=== PATIENT | male | born 1950 | race Caucasian/White ===

== ENCOUNTER 2019-09-22 06:54 | Day surgery (SDC) | payer MEDICARE, OTHER ==
[2019-09-22] MEDS: Lactated Ringers 1,000 ML IV SCH (07:47)
[2019-09-22] MEDS ORDERED: fentaNYL 100 MCG/2 ML SDV ONE (08:17)
[2019-09-22] MEDS ORDERED: Propofol 200 MG/20 ML SDV ONE (08:17)
--- NOTE | 2019-09-22 14:15 | OR ---
PREOPERATIVE DIAGNOSIS: Screening. POSTOPERATIVE DIAGNOSIS: Screening. PROCEDURE: Colonoscopy. ANESTHESIA: MAC. FINDINGS: One small internal hemorrhoid. DETAILS OF PROCEDURE: After obtaining informed consent, the patient was brought to the operating room and placed under monitored anesthesia care. A lighted well-lubricated scope equipped with Endocuff device was inserted into the anus and traversed all the way to the cecum. The cecum was identified by the appendiceal orifice and the ileocecal valve. We then retracted the scope over approximately 10 minutes and finding no pathology. We did find one small internal hemorrhoid on retroflex. The scope was removed. The patient should have repeat colonoscopy in 10 years or sooner if problems arise. CJM: 09/22/2019 09:55:56 MODL: 09/22/2019 14:08:53 /[id number]
== END 2019-09-22 11:14 | disposition home or self-care (01) ==
LOC: VM.SDS 06:54
PROVIDERS: ATTEND Surgery
DX: Z12.11 Encounter for screening for malignant neoplasm of colon (principal); K64.8 Other hemorrhoids; I10 Essential (primary) hypertension; E78.00 Pure hypercholesterolemia, unspecified; K21.9 Gastro-esophageal reflux disease without esophagitis; I25.10 Atherosclerotic heart disease of native coronary artery without angina pectoris; I25.83 Coronary atherosclerosis due to lipid rich plaque; E03.4 Atrophy of thyroid (acquired); G89.29 Other chronic pain; M54.5 Low back pain; N40.0 Benign prostatic hyperplasia without lower urinary tract symptoms; M19.041 Primary osteoarthritis, right hand; E66.9 Obesity, unspecified; Z68.30 Body mass index [BMI] 30.0-30.9, adult; Z87.891 Personal history of nicotine dependence; Z79.82 Long term (current) use of aspirin; Z79.899 Other long term (current) drug therapy
CPT/HCPCS: 00812; J2704; J3010; J7120

== ENCOUNTER 2019-12-11 17:14 | Emergency (ER) | payer MEDICARE, OTHER ==
[2019-12-11] MEDS ORDERED: Proparacaine 0.5% Ophth Soln 15 ML Bottle EYERT PRN (17:26)
[2019-12-11] MEDS ORDERED: Fluorescein 1 MG Ophth Strip EYERT ONE (17:44)
[2019-12-11] MEDS ORDERED: Cephalexin 500 MG Cap PO ONE (18:54)
[2019-12-11] MEDS ORDERED: Take Home: Cephalexin 500 MG Cap, 4 Cap Pack PO ONE (18:54)
--- NOTE | 2019-12-11 18:58 | EDM.PDOC ---
ED HPI GENERAL MEDICAL PROBLEM - General Chief Complaint: Eye Problems Stated Complaint: SOMETHING IN EYE Time Seen by Provider: 12/11/19 17:35 Source of Information: Reports: Patient History Limitations: Reports: No Limitations - History of Present Illness INITIAL COMMENTS - FREE TEXT/NARRATIVE: Patient comes emergency department today with complaints of a foreign substance solution that he got in his eye when he was inoculating his horse for the prevention of infection in the respiratory tract. His prior to arrival the patient was injecting that occasion into his horses nose to prevent horse "strangle". He was doing so the horse sneezed and it blew into his right eye. He has some burning sensation and some blurry vision. He did attempt to rinse his eyes at home prior to arrival with little relief. Treatments RECEIVING ASSOCIATE: Reports: Other (see below) Other Treatments RECEIVING ASSOCIATE: washed out eye Right Eye Pain Score (Numeric/FACES): 6 - Related Data Allergies Allergy/AdvReac Type Severity Reaction Status Date / Time codeine Allergy Other Verified 12/11/19 17:54 promethazine Allergy Other Verified 12/11/19 17:54 Home Meds: Home Meds Isosorbide Mononitrate [Imdur] 30 mg PO DAILY 09/13/19 [History] Levothyroxine 125 mcg PO ACBREAKFAST 09/13/19 [History] Omeprazole 20 mg PO DAILY 09/13/19 [History] Simvastatin 20 mg PO BEDTIME 09/13/19 [History] tiZANidine [Zanaflex] 4 mg PO BID PRN 09/13/19 [History] Aspirin [Halfprin] 81 mg PO DAILY 12/11/19 [History] Flaxseed Oil 1,000 mg PO DAILY 12/11/19 [History] Fluorometholone [Fluorometholone 0.1% Ophth Susp] 10 ml OP ASDIRECTED 12/11/19 [ History] Glucosam/Chondr/Collagn/Hyalur [Glucosamine & Chondroitin Cap] 1 each PO DAILY 12/11/19 [History] Ubiquinone 400 mg PO DAILY 12/11/19 [History] cephALEXin [Cephalexin] 500 mg PO QID #16 capsule 12/11/19 [Rx] Past Medical History HEENT History: Reports: Allergic Rhinitis, Hard of Hearing, Other (See Below) Other HEENT History: nasal polyps. left maxillary sinusitis Cardiovascular History: Reports: CAD, High Cholesterol, Hypertension Gastrointestinal History: Reports: GERD, Hemorrhoids, Other (See Below) Other Gastrointestinal History: hematemesis Genitourinary History: Reports: BPH Psychiatric History: Reports: Other (See Below) Other Psychiatric History: nicotine dependence Endocrine/Metabolic History: Reports: Hypothyroidism, Obesity/BMI 30+, Other ( See Below) Other Endocrine/Metabolic History: hyperglycemic - Past Surgical History HEENT Surgical History: Reports: Other (See Below) Other HEENT Surgeries/Procedures: teeth extraction GI Surgical History: Reports: Colostomy Other Female Surgeries/Procedures: prostate surgery Male Surgical History: Reports: TURP-Transurethral Resection of Prostate, Other (See Below) Musculoskeletal Surgical History: Reports: Other (See Below) Other Musculoskeletal Surgeries/Procedures:: foot surgery. fx surgery. hand surgery Social & Family History - Tobacco Use Smoking Status *Q: Never Smoker - Caffeine Use Caffeine Use: Reports: None - Alcohol Use Days Per Week of Alcohol Use: 1 Number of Drinks Per Day: 1 Total Drinks Per Week: 1 - Recreational Drug Use Recreational Drug Use: No ED ROS GENERAL - Review of Systems Review Of Systems: Comprehensive ROS is negative, except as noted in HPI. ED EXAM GENERAL W FULL EYE - Physical Exam Exam: See Below Text/Narrative:: See nurses notes for visual acuity exam. Exam Limited By: No Limitations General Appearance: Alert, WD/WN Eye Exam: Right Eye: Conjunctival Injection, Bilateral Eye: EOMI, PERRL Eyelids: Bilateral: Normal Appearance Conjunctiva & Sclera: Right: Injected Cornea Exam: Right: Examined with Flourescein (unremarkable. ) Extraocular Movements: Bilateral: Intact Pupils: Normal Accommodation Pupillary Size: Bilateral: 4 mm Pupillary Reaction: Bilateral: Brisk Ears: Normal External Exam, Normal Canal, Normal TMs Nose: Normal Inspection, Normal Mucosa Throat/Mouth: Normal Inspection, Normal Lips, Normal Teeth, Normal Oropharynx, No Airway Compromise Head: Atraumatic, Normocephalic Neck: Normal Inspection, Supple Respiratory/Chest: No Respiratory Distress Cardiovascular: Normal Peripheral Pulses Skin Exam: Warm, Dry, Intact, Normal Color, No Rash Course - Vital Signs Last Recorded V/S: Last Vital Signs Temp 36.4 C 12/11/19 17:26 Pulse 86 12/11/19 17:26 Resp 18 12/11/19 17:26 BP 181/97 H 12/11/19 17:26 Pulse Ox 93 L 12/11/19 17:26 - Orders/Labs/Meds Meds: Medications Discontinued Medications Generic Name Dose Route Start Last Admin Trade Name Lucina PRN Reason Stop Dose Admin Cephalexin 1 packet 12/11/19 18:54 12/11/19 19:04 Take Home: Cephalexin 500 Mg, 4 Cap Pack PO 12/11/19 18:55 1 packet ONETIME ONE Administration Cephalexin 500 mg 12/11/19 18:54 12/11/19 19:04 Keflex PO 12/11/19 18:55 500 mg ONETIME ONE Administration Fluorescein Sodium 1 mg 12/11/19 17:44 Ful-Ban EYERT 12/11/19 17:45 ONETIME ONE Proparacaine HCl 1 ml 12/11/19 17:26 12/11/19 19:07 Proparacaine 0.5% Ophth Soln EYERT 1 drop ASDIRECTED PRN Administration Other - Re-Assessments/Exams Free Text/Narrative Re-Assessment/Exam: 12/12/19 Proparacaine was instilled in the eye for anesthesia. A brief exam of the eye does not show any foreign material. There is some mild injection of the conjunctive on the sclera. A Jean lens was placed in the eye and it was irrigated with 300 mils of normal saline. Discuss with poison control the substance that was identified by the patient and their guidance was exactly what we have been doing as well as some antibiotic at home. This is a live vaccination and therefore we should cover him with Keflex or clindamycin. The patient's irritation to the eye resolved. I reexamined the eye not only under fluorescein but also visual appearance. There is no foreign material debris corneal abrasion. We will start him on Keflex as guided by poison control. If he is not following the improvement of 90% in 24 hours and 100% 48 hours he is to recheck with either ophthalmology or optometry. He is understanding of this his questions were answered and he was comfortable with this plan. Departure - Departure Time of Disposition: 18:52 Disposition: Home, Self-Care 01 Clinical Impression: Liquid substance in eye - Discharge Information Prescriptions: cephALEXin [Cephalexin] 500 mg PO QID #16 capsule Referrals: Iona Ye MD [Primary Care Provider] - Forms: ED Department Discharge Additional Instructions: Warm packs to the eye. Try not to rub your eye. Cephalexin 1 capsule 4 times a day for the next 5 days. RX to Pharmacy. Starter pack from the ED given. In 24 hours you should be 90% better and 48 hours 100% better. If not following this plan see optometry. Return to the ED if new or worsening symptoms especially change in vision pain in the eye. Sepsis Event Note - Evaluation Sepsis Screening Result: No Definite Risk - Focused Exam Date Exam was Performed: 12/12/19 Time Exam was Performed: 13:40
== END 2019-12-11 19:09 | disposition home or self-care (01) ==
LOC: VM.ED 17:14
DX: T15.91XA Foreign body on external eye, part unspecified, right eye, initial encounter (principal); I10 Essential (primary) hypertension; E78.00 Pure hypercholesterolemia, unspecified; I25.10 Atherosclerotic heart disease of native coronary artery without angina pectoris; K21.9 Gastro-esophageal reflux disease without esophagitis; E03.9 Hypothyroidism, unspecified; E66.9 Obesity, unspecified; Z68.26 Body mass index [BMI] 26.0-26.9, adult; Z88.5 Allergy status to narcotic agent; Z88.8 Allergy status to other drugs, medicaments and biological substances; Z79.899 Other long term (current) drug therapy; Z79.82 Long term (current) use of aspirin
CPT/HCPCS: 99283; 99284-GF; A9270-GY

== ENCOUNTER 2020-02-06 17:03 | Emergency (ER) | payer MEDICARE, OTHER ==
[2020-02-06] MEDS ORDERED: Sodium Chloride 0.9% 10 ML Syringe FLUSH PRN (17:59)
[2020-02-06] MEDS ORDERED: cefTRIAXone 2 GM Vial IVPUSH ONE (17:59)
--- NOTE | 2020-02-06 18:07 | EDM.PDOC ---
ED HPI GENERAL MEDICAL PROBLEM - General Stated Complaint: infection in arm Time Seen by Provider: 02/06/20 17:58 Source of Information: Reports: Patient History Limitations: Reports: No Limitations - History of Present Illness INITIAL COMMENTS - FREE TEXT/NARRATIVE: Patient comes emergency department today with complaints of redness swelling and pain to the right forearm. This patient is actively receiving chemotherapy for what he relates is multiple myeloma. He received chemotherapy infusion on a peripheral IV started on Friday and this week. Yesterday 2 days later after his IV infusion which she had no problems with or irritation at the IV site initially he developed erythema swelling and redness right anterior forearm. He denies any fever or chills. He denies any generalized malaise or fatigue. No nausea no vomiting. No weakness dizziness lightheadedness. Not have a subcutaneous port or PICC line for his chemotherapy is going to be receiving 2 to 3 days a week for the next 4 months. - Related Data Allergies Allergy/AdvReac Type Severity Reaction Status Date / Time codeine Allergy Other Verified 12/11/19 17:54 promethazine Allergy Other Verified 12/11/19 17:54 Home Meds: Home Meds Isosorbide Mononitrate [Imdur] 30 mg PO DAILY 09/13/19 [History] Levothyroxine 125 mcg PO ACBREAKFAST 09/13/19 [History] Omeprazole 20 mg PO DAILY 09/13/19 [History] Simvastatin 20 mg PO BEDTIME 09/13/19 [History] tiZANidine [Zanaflex] 4 mg PO BID PRN 09/13/19 [History] Aspirin [Halfprin] 81 mg PO DAILY 12/11/19 [History] Flaxseed Oil 1,000 mg PO DAILY 12/11/19 [History] Fluorometholone [Fluorometholone 0.1% Ophth Susp] 10 ml OP ASDIRECTED 12/11/19 [ History] Glucosam/Chondr/Collagn/Hyalur [Glucosamine & Chondroitin Cap] 1 each PO DAILY 12/11/19 [History] Ubiquinone 400 mg PO DAILY 12/11/19 [History] cephALEXin [Cephalexin] 500 mg PO QID #16 capsule 12/11/19 [Rx] Cefdinir 300 mg PO BID #20 capsule 02/06/20 [Rx] Past Medical History HEENT History: Reports: Allergic Rhinitis, Hard of Hearing, Other (See Below) Other HEENT History: nasal polyps. left maxillary sinusitis Cardiovascular History: Reports: CAD, High Cholesterol, Hypertension Gastrointestinal History: Reports: GERD, Hemorrhoids, Other (See Below) Other Gastrointestinal History: hematemesis Genitourinary History: Reports: BPH Psychiatric History: Reports: Other (See Below) Other Psychiatric History: nicotine dependence Endocrine/Metabolic History: Reports: Hypothyroidism, Obesity/BMI 30+, Other ( See Below) Other Endocrine/Metabolic History: hyperglycemic - Past Surgical History HEENT Surgical History: Reports: Other (See Below) Other HEENT Surgeries/Procedures: teeth extraction GI Surgical History: Reports: Colostomy Male Surgical History: Reports: TURP-Transurethral Resection of Prostate, Other (See Below) Musculoskeletal Surgical History: Reports: Other (See Below) Other Musculoskeletal Surgeries/Procedures:: foot surgery. fx surgery. hand surgery Social & Family History - Caffeine Use Caffeine Use: Reports: None ED ROS GENERAL - Review of Systems Review Of Systems: Comprehensive ROS is negative, except as noted in HPI. ED EXAM, SKIN/RASH Exam: See Below Exam Limited By: No Limitations General Appearance: Alert, WD/WN, No Apparent Distress Ears: Normal External Exam, Normal TMs Nose: Normal Inspection, Normal Mucosa Throat/Mouth: Normal Inspection, Normal Lips, Normal Oropharynx Head: Atraumatic, Normocephalic Neck: Normal Inspection, Supple Respiratory/Chest: No Respiratory Distress, Lungs Clear, Normal Breath Sounds, No Accessory Muscle Use Cardiovascular: Normal Peripheral Pulses, Regular Rate, Rhythm Peripheral Pulses: 2+: Radial (L), Radial (R), Posterior Tibial (L), Posterior Tibial (R), Dorsalis Pedis (L), Dorsalis Pedis (R) GI/Abdominal: Normal Bowel Sounds, Soft, Non-Tender (Male) Exam: Deferred Rectal (Males) Exam: Deferred Back Exam: Normal Inspection, Full Range of Motion Extremities: No: Normal Inspection (On the dorsal aspect of the right forearm starting on the distal radius side extending up about three quarters [address] way on the forearm there is an area of erythema induration and swelling. There is no focal areas of fluctuance concerning for abscess. There is no drainage. There is no breaks in the skin. It is warm to touch. There is no lymphadenopathy in the right axilla. Rest of the right arm is unremarkable. He is able to flex and extend at the elbow appropriately.) Neurological: Alert, Oriented, Normal Cognition, No Motor/Sensory Deficits Psychiatric: Normal Affect Skin: Warm, Dry, Intact, Normal Color Course - Orders/Labs/Meds Orders: Active Orders 24 hr Category Date Time Status CULTURE BLOOD [BC] Stat Lab 02/06/20 18:20 Received CULTURE BLOOD [BC] Stat Lab 02/06/20 18:28 Received Sodium Chloride 0.9% [Saline Flush] Med 02/06/20 17:59 Active 10 ml FLUSH ASDIRECTED PRN Blood Culture x2 Reflex Set [OM.PC] Stat Oth 02/06/20 17:59 Ordered Peripheral IV Insertion Adult [OM.PC] Stat Oth 02/06/20 17:59 Ordered Medication Orders Sodium Chloride (Saline Flush) 10 ml FLUSH ASDIRECTED PRN PRN Reason: Keep Vein Open Labs: Laboratory Tests 02/06/20 02/06/20 02/06/20 Range/Units 18:20 18:20 18:20 WBC 11.1 H (4.0-10.0) x10^3/uL RBC 5.37 (4.5-6.0) x10^6/uL Hgb 16.4 (14.0-18.0) g/dL Hct 45.9 (40.0-52.0) % MCV 85.5 (78.0-93.0) fL MCH 30.5 (26.0-32.0) pg MCHC 35.7 (32.0-36.0) g/dL RDW Coeff of Nae 12.8 (10.0-15.0) % Plt Count 198 (130-400) x10^3/uL Add Manual Diff Yes Neutrophils % (Manual) 61 (50-80) % Band Neutrophils % 3 (0-6) % Lymphocytes % (Manual) 20 L (25-50) % Monocytes % (Manual) 12 H (2-11) % Eosinophils % (Manual) 4 (0-4) % Platelet Estimate Adequate Giant Platelets Few H Sodium 142 (136-145) mmol/L Potassium 3.8 (3.5-5.1) mmol/L Chloride 107 (98-107) mmol/L Carbon Dioxide 25 (21-32) mmol/L Anion Gap 13.8 (10-20) mmol/L BUN 21 H (7-18) mg/dL Creatinine 1.2 (0.70-1.30) mg/dL Est Cr Clr Drug Dosing TNP Estimated GFR (MDRD) > 60 Glucose 112 H (74-106) mg/dL Lactic Acid 1.1 (0.4-2.0) mmol/L Calcium 8.4 L (8.5-10.1) mg/dL C-Reactive Protein 0.4 (<=0.9) mg/dL Meds: Medications Generic Name Dose Route Start Last Admin Trade Name Freq PRN Reason Stop Dose Admin Sodium Chloride 10 ml 02/06/20 17:59 Saline Flush FLUSH ASDIRECTED PRN Keep Vein Open Discontinued Medications Generic Name Dose Route Start Last Admin Trade Name Freq PRN Reason Stop Dose Admin Ceftriaxone Sodium 2 gm 02/06/20 17:59 Rocephin IVPUSH 02/06/20 18:00 STAT ONE - Re-Assessments/Exams Free Text/Narrative Re-Assessment/Exam: 02/06/20 19:05 Was established. Blood cultures x2. Rocephin 2 g IV push. He has a negative lactic acid as well as CRP and WBC. Rest of his labs are rather unremarkable. We will start him on Ceftin ear twice daily for the next 10 days. I would like him to contact his oncologist in the morning and give him a copy of his labs and discuss the incident of today. He is comfortable with this plan and his questions are answered. I also suggested that with the rather aggressive therapy that he is going to have for the next 4 months that he considers either a PICC line or a port placement. Understanding the discharge instructions we did discharge him home with his labs he is comfortable with this plan his questions are answered. Departure - Departure Time of Disposition: 18:55 Disposition: Home, Self-Care 01 Clinical Impression: Cellulitis of arm, right - Discharge Information Instructions: Cellulitis, Adult, [id number] Additional Instructions: Tylenol and/or ibuprofen as needed for pain fever discomfort. If the infection spreads outside of the tracing and you develop any new or worsening symptoms after 24 hours recheck with your primary care oncologist. Talk to her oncologist office in the morning and let him know about your visit today and the concerns of the cellulitis and that you are placed on cefdinir and had blood cultures and lab work completed. To the placement of a subcutaneous port or PICC line for the next 4 months for your very regular chemotherapy infusions. Return to the emergency department if new or worsening symptoms. Sepsis Event Note - Focused Exam Date Exam was Performed: 02/06/20 Time Exam was Performed: 18:55 - My Orders Last 24 Hours: My Active Orders 02/06/20 17:59 Sodium Chloride 0.9% [Saline Flush] 10 ml FLUSH ASDIRECTED PRN Blood Culture x2 Reflex Set [OM.PC] Stat Peripheral IV Insertion Adult [OM.PC] Stat 02/06/20 18:20 CULTURE BLOOD [BC] Stat 02/06/20 18:28 CULTURE BLOOD [BC] Stat - Assessment/Plan Last 24 Hours: My Active Orders 02/06/20 17:59 Sodium Chloride 0.9% [Saline Flush] 10 ml FLUSH ASDIRECTED PRN Blood Culture x2 Reflex Set [OM.PC] Stat Peripheral IV Insertion Adult [OM.PC] Stat 02/06/20 18:20 CULTURE BLOOD [BC] Stat 02/06/20 18:28 CULTURE BLOOD [BC] Stat Assessment:: Active chemo patient. Cellulitis of the right arm previous IV site. Plan: Tylenol and/or ibuprofen as needed for pain fever discomfort. If the infection spreads outside of the tracing and you develop any new or worsening symptoms after 24 hours recheck with your primary care oncologist. Talk to her oncologist office in the morning and let him know about your visit today and the concerns of the cellulitis and that you are placed on cefdinir and had blood cultures and lab work completed. To the placement of a subcutaneous port or PICC line for the next 4 months for your very regular chemotherapy infusions. Return to the emergency department if new or worsening symptoms.
[2020-02-06 18:46] LABS: CHLORIDE,CL 107 mmol/L (98-107); SODIUM,NA 142 mmol/L (136-145)
[2020-02-06 18:47] LABS: ANION GAP 13.8 mmol/L (10-20)
== END 2020-02-06 19:37 | disposition home or self-care (01) ==
LOC: VM.ED 17:03
DX: L03.113 Cellulitis of right upper limb (principal); I25.10 Atherosclerotic heart disease of native coronary artery without angina pectoris; E78.00 Pure hypercholesterolemia, unspecified; I10 Essential (primary) hypertension; K21.9 Gastro-esophageal reflux disease without esophagitis; E66.9 Obesity, unspecified; E03.9 Hypothyroidism, unspecified; Z68.27 Body mass index [BMI] 27.0-27.9, adult; Z88.5 Allergy status to narcotic agent; Z88.8 Allergy status to other drugs, medicaments and biological substances
CPT/HCPCS: 36415; 80048; 83605; 85025; 86140; 87040; 96374; 99283-25; 99284-GF; J0696

== ENCOUNTER 2020-03-09 19:20 | Emergency (ER) | payer MEDICARE, OTHER ==
[2020-03-09] MEDS ORDERED: Sodium Chloride 0.9% 10 ML Syringe FLUSH PRN (19:43)
--- NOTE | 2020-03-09 20:01 | EDM.PDOC ---
ED HPI GENERAL MEDICAL PROBLEM - General Chief Complaint: Fever Stated Complaint: CHILLS AND FEVER Time Seen by Provider: 03/09/20 19:37 Source of Information: Reports: Patient - History of Present Illness INITIAL COMMENTS - FREE TEXT/NARRATIVE: Oscar is a 69 y/o male who is currently undergoing chemotherapy for Multiple Myeloma. He had a chem course this AM between 8:30 and 10:30. He reports getting home and having an uneventful day until about a half an hour ago when he started to get a fever and chills at home. He called the [facility] who advised he present to the ER for evaluation. He denies any other symptoms and only had the fever and chills. On arrival to the ER his ubfq=[id number]. - Related Data Allergies Allergy/AdvReac Type Severity Reaction Status Date / Time codeine Allergy Other Verified 03/09/20 19:25 promethazine Allergy Other Verified 03/09/20 19:25 Home Meds: Home Meds Omeprazole 40 mg PO DAILY 09/13/19 [History] Aspirin 325 mg PO DAILY 03/09/20 [History] Cetirizine [ZyrTEC] 10 mg PO DAILY 03/09/20 [History] Hydrocortisone [Hydrocortisone 1% Oint] 28 gm TOP TID PRN 03/09/20 [History] Lenalidomide [Revlimid] 25 mg PO DAILY 03/09/20 [History] Ondansetron [Zofran] 8 mg PO Q8H PRN 03/09/20 [History] dexAMETHasone [Decadron] 40 mg PO WEEKLY 03/09/20 [History] diphenhydrAMINE [Benadryl] 25 mg PO BEDTIME PRN 03/09/20 [History] Past Medical History HEENT History: Reports: Allergic Rhinitis, Hard of Hearing, Other (See Below) Other HEENT History: nasal polyps. left maxillary sinusitis Cardiovascular History: Reports: CAD, High Cholesterol, Hypertension Gastrointestinal History: Reports: GERD, Hemorrhoids, Other (See Below) Other Gastrointestinal History: hematemesis Genitourinary History: Reports: BPH Psychiatric History: Reports: Other (See Below) Other Psychiatric History: nicotine dependence Endocrine/Metabolic History: Reports: Hypothyroidism, Obesity/BMI 30+, Other (See Below) Other Endocrine/Metabolic History: hyperglycemic Oncologic (Cancer) History: Reports: Other (See Below) Other Oncologic History: Myeloma - Past Surgical History HEENT Surgical History: Reports: Other (See Below) Other HEENT Surgeries/Procedures: teeth extraction GI Surgical History: Reports: Colostomy Male Surgical History: Reports: TURP-Transurethral Resection of Prostate, Other (See Below) Musculoskeletal Surgical History: Reports: Other (See Below) Other Musculoskeletal Surgeries/Procedures:: foot surgery. fx surgery. hand surgery Social & Family History - Tobacco Use Smoking Status *Q: Former Smoker Used Tobacco, but Quit: Yes Month/Year Tobacco Last Used: 2015 - Caffeine Use Caffeine Use: Reports: None Review of Systems - Review of Systems Review Of Systems: See Below Constitutional: Reports: Chills, Fever Eyes: Reports: No Symptoms Ears: Reports: No Symptoms Nose: Reports: No Symptoms Mouth/Throat: Reports: No Symptoms Respiratory: Reports: No Symptoms Cardiovascular: Reports: No Symptoms GI/Abdominal: Reports: No Symptoms Genitourinary: Reports: No Symptoms Musculoskeletal: Reports: No Symptoms Skin: Reports: No Symptoms Neurological: Reports: No Symptoms Psychiatric: Reports: No Symptoms ED EXAM, GENERAL - Physical Exam Exam: See Below Exam Limited By: No Limitations General Appearance: Alert, WD/WN, No Apparent Distress (Elderly male) Ears: Normal External Exam, Normal Canal, Hearing Grossly Normal, Normal TMs Nose: Normal Inspection, Normal Mucosa, No Blood Throat/Mouth: Normal Inspection, Normal Lips, Normal Oropharynx, Normal Voice Head: Atraumatic, Normocephalic Neck: Normal Inspection, Supple, Non-Tender Respiratory/Chest: No Respiratory Distress, Lungs Clear, Normal Breath Sounds, No Accessory Muscle Use, Chest Non-Tender Cardiovascular: Normal Peripheral Pulses, Regular Rate, Rhythm, No Edema, No Murmur GI/Abdominal: Normal Bowel Sounds, Soft, Non-Tender, No Organomegaly (Male) Exam: Deferred Rectal (Males) Exam: Deferred Back Exam: Normal Inspection Extremities: Normal Inspection, Normal Range of Motion, No Pedal Edema, Normal Capillary Refill Neurological: Alert, Oriented, CN II-XII Intact, Normal Cognition, Normal Gait, No Motor/Sensory Deficits Psychiatric: Normal Affect Skin Exam: Warm, Dry, Intact, Normal Color, No Rash Lymphatic: No Adenopathy Course - Vital Signs Text/Narrative:: 193 The patient was seen by the [facility]. Labs ordered. 2009 Lab returned. Note WBC=22.4 and Neut=90, Bands=4. BUN=22, [employer]=1.5. COVID neg. 2024 [facility] contacted and case presented. 2034 Dr Camacho, Hospitalist, accepted the patient for transfer. A liter of NS, Vancomycin 1gm IVPB, and Cefipime 1gm IVPB ordered. Lactic Acid and Blood Cx x2 ordered. Patient remained stable until he left the ER with [facility] for [place]. Last Recorded V/S: Last Vital Signs Temp 38.1 C 03/09/20 19:25 Pulse 105 H 03/09/20 19:25 Resp 18 03/09/20 19:25 BP 118/97 H 03/09/20 19:25 Pulse Ox 100 03/09/20 19:25 - Orders/Labs/Meds Orders: Active Orders 24 hr Category Date Time Status CULTURE BLOOD [BC] Stat Lab 03/09/20 20:46 Ordered CULTURE BLOOD [BC] Stat Lab 03/09/20 20:47 Ordered LACTIC ACID [CHEM] Stat Lab 03/09/20 20:46 Ordered UA W/DARSHANA RFLX IF INDICATED [URIN] Stat Lab 03/09/20 19:43 Ordered Cefepime [Maxipime] 1 gm Med 03/09/20 20:48 Ordered Sodium Chloride 0.9% [Normal Saline] 100 ml IV STAT Sodium Chloride 0.9% @ Wide Open(1,000ml) Med 03/09/20 20:47 Ordered Sodium Chloride 0.9% [Normal Saline] 1,000 ml IV ONETIME Sodium Chloride 0.9% [Saline Flush] Med 03/09/20 19:43 Active 10 ml FLUSH ASDIRECTED PRN Vancomycin 1 gm Med 03/09/20 20:47 Ordered Sodium Chloride 0.9% [Normal Saline (AdvBag)] 250 ml IV STAT Blood Culture x2 Reflex Set [OM.PC] Stat Oth 03/09/20 20:46 Ordered Saline Lock Insert [OM.PC] Stat Oth 03/09/20 19:43 Ordered Medication Orders Sodium Chloride (Normal Saline) 1,000 mls @ 999 mls/hr IV ONETIME ONE Stop: 03/09/20 21:47 Last Admin: 03/09/20 20:51 Dose: 999 mls/hr Documented by: Vancomycin HCl 1 gm/ Sodium (Chloride) 250 mls @ 250 mls/hr IV STAT ONE Stop: 03/09/20 21:46 Cefepime HCl 1 gm/ Sodium (Chloride) 100 mls @ 200 mls/hr IV STAT ONE Stop: 03/09/20 21:17 Last Admin: 03/09/20 20:55 Dose: 200 mls/hr Documented by: Sodium Chloride (Saline Flush) 10 ml FLUSH ASDIRECTED PRN PRN Reason: Keep Vein Open Last Admin: 03/09/20 20:15 Dose: 10 ml Documented by: DERRICK Labs: Laboratory Tests 03/09/20 03/09/20 03/09/20 Range/Units 19:55 19:55 20:08 WBC 22.4 H* (4.0-10.0) x10^3/uL RBC 4.42 L (4.5-6.0) x10^6/uL Hgb 13.6 L D (14.0-18.0) g/dL Hct 39.7 L (40.0-52.0) % MCV 89.8 D (78.0-93.0) fL MCH 30.8 (26.0-32.0) pg MCHC 34.3 (32.0-36.0) g/dL RDW Coeff of Nae 15.8 H (10.0-15.0) % Plt Count 143 (130-400) x10^3/uL Add Manual Diff Yes Neutrophils % (Manual) 90 H (50-80) % Band Neutrophils % 4 (0-6) % Lymphocytes % (Manual) 2 L (25-50) % Monocytes % (Manual) 2 (2-11) % Eosinophils % (Manual) 2 (0-4) % Hypersegmented Neuts Few H Platelet Estimate Adequate Anisocytosis 1+ slight H Sodium 141 (136-145) mmol/L Potassium 3.9 (3.5-5.1) mmol/L Chloride 107 (98-107) mmol/L Carbon Dioxide 22 (21-32) mmol/L Anion Gap 15.9 (10-20) mmol/L BUN 22 H (7-18) mg/dL Creatinine 1.5 H (0.70-1.30) mg/dL Est Cr Clr Drug Dosing TNP Estimated GFR (MDRD) 47 Glucose 135 H (74-106) mg/dL Calcium 8.1 L (8.5-10.1) mg/dL Corrected Calcium 8.58 (8.5-10.1) mg/dL Total Bilirubin 0.7 (0.2-1.0) mg/dL AST 13 L (15-37) U/L ALT 56 (16-63) U/L Alkaline Phosphatase 80 (46-116) U/L Lactate Dehydrogenase 223 (85-227) U/L Total Protein 6.2 L (6.4-8.2) g/dL Albumin 3.4 (3.4-5.0) g/dL Globulin 2.8 Albumin/Globulin Ratio 1.21 COVID-19 (LIANA) Negative (NEGATIVE) Meds: Medications Generic Name Dose Route Start Last Admin Trade Name Freq PRN Reason Stop Dose Admin Sodium Chloride 1,000 mls @ 999 mls/hr 03/09/20 20:47 03/09/20 20:51 Normal Saline IV 03/09/20 21:47 999 mls/hr ONETIME ONE Administration Vancomycin HCl 1 gm/ Sodium 250 mls @ 250 mls/hr 03/09/20 20:47 Chloride IV 03/09/20 21:46 STAT ONE Cefepime HCl 1 gm/ Sodium 100 mls @ 200 mls/hr 03/09/20 20:48 03/09/20 20:55 Chloride IV 03/09/20 21:17 200 mls/hr STAT ONE Administration Sodium Chloride 10 ml 03/09/20 19:43 03/09/20 20:15 Saline Flush FLUSH 10 ml ASDIRECTED PRN Administration Keep Vein Open Departure - Departure Time of Disposition: 18:35 Disposition: DC/Tfer to Acute Hospital 02 Condition: Good Clinical Impression: Fever, Leukocytosis, Multiple myeloma not having achieved remission, Immunocompromised state due to drug therapy - Discharge Information *PRESCRIPTION DRUG MONITORING PROGRAM REVIEWED*: Not Applicable *COPY OF PRESCRIPTION DRUG MONITORING REPORT IN PATIENT TOMMY: Not Applicable Referrals: Iona Ye MD [Primary Care Provider] - Forms: ED Department Discharge, Interfacility Transfer EMTALA Additional Instructions: -Transfer to [facility] to Dr Camacho via ground ambulance -IV fluids infusing for transport Sepsis Event Note (ED) - Evaluation Sepsis Screening Result: No Definite Risk - Focused Exam Vital Signs: Vital Signs Temp Pulse Resp BP Pulse Ox 03/09/20 19:25 38.1 C 105 H 18 118/97 H 100 - Problem List Review Problem List Initiated/Reviewed/Updated: Yes - My Orders Last 24 Hours: My Active Orders 03/09/20 19:43 UA W/DARSHANA RFLX IF INDICATED [URIN] Stat Sodium Chloride 0.9% [Saline Flush] 10 ml FLUSH ASDIRECTED PRN Saline Lock Insert [OM.PC] Stat 03/09/20 20:46 CULTURE BLOOD [BC] Stat LACTIC ACID [CHEM] Stat Blood Culture x2 Reflex Set [OM.PC] Stat 03/09/20 20:47 CULTURE BLOOD [BC] Stat Sodium Chloride 0.9% @ Wide Open(1,000ml) Sodium Chloride 0.9% [Normal Saline] 1,000 ml IV ONETIME Vancomycin 1 gm Sodium Chloride 0.9% [Normal Saline (AdvBag)] 250 ml IV STAT 03/09/20 20:48 Cefepime [Maxipime] 1 gm Sodium Chloride 0.9% [Normal Saline] 100 ml IV STAT - Assessment/Plan Last 24 Hours: My Active Orders 03/09/20 19:43 UA W/DARSHANA RFLX IF INDICATED [URIN] Stat Sodium Chloride 0.9% [Saline Flush] 10 ml FLUSH ASDIRECTED PRN Saline Lock Insert [OM.PC] Stat 03/09/20 20:46 CULTURE BLOOD [BC] Stat LACTIC ACID [CHEM] Stat Blood Culture x2 Reflex Set [OM.PC] Stat 03/09/20 20:47 CULTURE BLOOD [BC] Stat Sodium Chloride 0.9% @ Wide Open(1,000ml) Sodium Chloride 0.9% [Normal Saline] 1,000 ml IV ONETIME Vancomycin 1 gm Sodium Chloride 0.9% [Normal Saline (AdvBag)] 250 ml IV STAT 03/09/20 20:48 Cefepime [Maxipime] 1 gm Sodium Chloride 0.9% [Normal Saline] 100 ml IV STAT Assessment:: 1)Fever, Unknown Origin 2)Leukocytosis 3)Multiple Myeloma 4)Immunocompromised, due to Chemotherapy 5)COVID neg Plan: -Transfer to [facility] for further care
[2020-03-09 20:23] LABS: ANION GAP 15.9 mmol/L (10-20); CHLORIDE,CL 107 mmol/L (98-107); SODIUM,NA 141 mmol/L (136-145)
[2020-03-09] MEDS ORDERED: Sodium Chloride 0.9% 1,000 ML IV ONE (20:47)
[2020-03-09] MEDS ORDERED: Cefepime 1 GM in Sodium Chloride 0.9% 100 ML IV ONE (20:48)
== END 2020-03-09 21:35 | disposition short-term general hospital (02) ==
LOC: VM.ED 19:20
DX: D72.829 Elevated white blood cell count, unspecified (principal); C90.00 Multiple myeloma not having achieved remission; T45.1X5A Adverse effect of antineoplastic and immunosuppressive drugs, initial encounter; I25.10 Atherosclerotic heart disease of native coronary artery without angina pectoris; I10 Essential (primary) hypertension; K21.9 Gastro-esophageal reflux disease without esophagitis; E66.9 Obesity, unspecified; Z87.891 Personal history of nicotine dependence; Z88.5 Allergy status to narcotic agent; Z88.8 Allergy status to other drugs, medicaments and biological substances; Z79.82 Long term (current) use of aspirin; Z79.899 Other long term (current) drug therapy
CPT/HCPCS: 36415; 80053; 83605; 83615; 85025; 87040; 96365; 96375; 99284-25; J0692; J3370; J7030; J7050; U0002

== ENCOUNTER 2023-04-01 15:53 | Emergency (ER) | payer OTHER, MEDICARE | END 2023-04-01 16:13 | disposition home or self-care (01) | LOC: VM.ED 15:53 → MERGE 15:53 → VM.ED 16:13 | DX: T63.461A Toxic effect of venom of wasps, accidental (unintentional), initial encounter (principal); I25.10 Atherosclerotic heart disease of native coronary artery without angina pectoris; E78.00 Pure hypercholesterolemia, unspecified; I10 Essential (primary) hypertension; N40.0 Benign prostatic hyperplasia without lower urinary tract symptoms; E03.9 Hypothyroidism, unspecified; E66.9 Obesity, unspecified; Z68.30 Body mass index [BMI] 30.0-30.9, adult; Z88.5 Allergy status to narcotic agent; Z88.8 Allergy status to other drugs, medicaments and biological substances; Z79.899 Other long term (current) drug therapy; Z79.82 Long term (current) use of aspirin | CPT/HCPCS: 99282; 99283 ==